=== PATIENT | female | born 1990 | race Caucasian/White ===

== ENCOUNTER 2017-07-18 20:03 | Emergency (ER) | payer OTHER ==
[~2017-07-18] VITALS: Ht 149.9 cm; Wt 81.6 kg
--- NOTE | 2017-07-18 20:46 | NUR ---
JAMES at bedside, incident # [id number]
[2017-07-18] MEDS ORDERED: IBUPROFEN 800 MG TABLET PO ONE (21:00)
[2017-07-18] MEDS ORDERED: IBUPROFEN 800 MG TABLET ONE (21:15)
[2017-07-18 21:20] LABS: *URINE HCG, QUAL NEG (NEGATIVE)
[2017-07-18] MEDS ORDERED: HYDROCODONE/APAP 10-325 MG TABLET PO ONE (23:45)
--- NOTE | 2017-07-19 00:02 | NUR ---
Patient discharged to home in stable conditon. Written and verbal after care instructions given. Patient verbalizes understanding of instructions.
[2017-07-19] MEDS ORDERED: HYDROCODONE/APAP 10-325 MG TABLET ONE (00:07)
== END 2017-07-19 00:05 | disposition home or self-care (01) ==
LOC: ER 20:04
DX: S16.1XXA Strain of muscle, fascia and tendon at neck level, initial encounter (principal); R07.89 Other chest pain; J45.909 Unspecified asthma, uncomplicated; V43.52XA Car driver injured in collision with other type car in traffic accident, initial encounter; Y92.89 Other specified places as the place of occurrence of the external cause; Y93.89 Activity, other specified; Y99.8 Other external cause status
CPT/HCPCS: 70450; 71250; 72125; 84703; A4663